=== PATIENT | female | born 1975 ===

== ENCOUNTER 2016-11-03 08:05 | Day surgery (SDC) | payer OTHER ==
[2016-10-29 10:32] VITALS: BMI 24.8
[2016-11-03] MEDS ORDERED: Lactated Ringer's 1,000 ML IV ONE ×3 (08:56)
[2016-11-03] MEDS ORDERED: Midazolam 2 MG/2 ML VIAL ONE (10:30)
[2016-11-03] MEDS ORDERED: Propofol 10 mg/ml Inj (20 ML) ONE (10:30)
--- NOTE | 2016-11-03 11:03 | PCM.SURG1 ---
Surgeon's Initial Post Op Note - Surgeon's Notes Surgeon: Dr Lee Health Underwriter: None Type of Anesthesia: General LMA Anesthesia Administered By: Dr. Newton Pre-Operative Diagnosis: 41 YO WITH mENORRHAGIA, iRREGULAR MENTRUAL CYCLE, eNDOMETRIAL POLYP Operative Findings: AV uterus 10-12 wks endometrial polyp Post-Operative Diagnosis: Same as above Operation Performed: Hysteroscopy Myosure D and C Specimen/Specimens Removed: EMC, ECC, endometrial polyp Estimated Blood Loss: EBL {In ML}: 5 Blood Products Given: N/A Drains Used: No Drains Post-Op Condition: Good Date of Surgery/Procedure: 11/03/16 Time of Surgery/Procedure: 11:02
[2016-11-03 12:28] VITALS: O2SAT 100
[2016-11-03 12:54] VITALS: BP 141/85; PULSE 73; RESP 20; TEMP 97.9
--- NOTE | 2016-11-20 11:36 | PCM.OP ---
Date of Operation : 11/03/2016 Operative Surgeon: Leesa Alves Weed Sprayer: none Anesthesia: General, Dr. Newton Preoperative Diagnosis: 41 yo female with Hx of menorrhagia, Irregular menstrual period, and endometrial polyp. Postoperative Diagnosis: Same Procedure/s: Hysteroscopy Myosure and D&C Description of Operation/Operative Findings: Anteverted uterus approximately 8 weeks gestation, known to have an endometrial polyp. Procedure: Patient was informed of the foreseeable risks and complications, the alternative treatments and procedure. Risks are including infection, bleeding, damage to surrounding organs and tissue, anesthesia complications,and possible . After form consent was obtained she was then taken to the operating room , prepped and draped in the sterile fashion and placed into the dorsal lithotomy position. A weighted speculum was placed in the posterior aspect of the vagina and the anterior lip of the cervix was grasped with the vulsellum tenaculum.The uterus was gently sounded to a depth of approximately 10 cm. Upon complete dilation, a scope was then placed, a myosure was then placed and the endometrial polyp was removed under direct visualization. In that instant the scope was then removed and a D&C was performed. EMC & ECC was obtained and submitted to pathology. Hemostasis was noted. Upon completion all instruments were removed from the vagina ____ .Patient was then taken to the recovery room in stable condition and instructed to follow up in the office in approximately next two weeks. Blood Loss: 10 cc's 100 cc Specimens: EMC, ECC and Polyp Complications: None MTDD
== END 2016-11-03 12:54 | disposition home or self-care (01) ==
LOC: C.SDS 08:05
PROVIDERS: ATTEND Obstetrics & Gynecology
DX: N84.0 Polyp of corpus uteri (principal); D25.9 Leiomyoma of uterus, unspecified; N92.0 Excessive and frequent menstruation with regular cycle
CPT/HCPCS: 58558; 88305; J2250; J2405; J2704; J3010; J7120